=== PATIENT | female | born 1950 | race Caucasian/White ===

== ENCOUNTER 2017-11-13 13:16 | Emergency (ER) | payer MEDICARE ==
[2017-11-13] MEDS ORDERED: Proparacaine 0.5% Opth 15 ML BOT ONE (14:00)
[2017-11-13] MEDS ORDERED: Fluorescein Opthalmic Strip ONE (14:00)
== END 2017-11-13 14:38 | disposition home or self-care (01) ==
LOC: ERS 13:16
DX: S05.01XA Injury of conjunctiva and corneal abrasion without foreign body, right eye, initial encounter (principal); Z79.899 Other long term (current) drug therapy; Y33.XXXA Other specified events, undetermined intent, initial encounter
CPT/HCPCS: 99283